=== PATIENT | male | born 1980 | race African-American/Black ===

== ENCOUNTER 2020-08-31 11:10 | Emergency (ER) | payer SELFPAY ==
[~2020-08-31] VITALS: Ht 185.4 cm; Wt 149.7 kg
[2020-08-31] MEDS ORDERED: SODIUM CHLORIDE 0.9% 1,000 ML IV ONE ×2 (11:30)
[2020-08-31 11:49] LABS: Basophils # (auto) 0 10 ^3/uL (0-0.2); Basophils % (auto) 0.6 % (0.0-2.0); Eosinophils # (auto) 0 10 ^3/uL (0-0.8); Eosinophils % (auto) 0.6 % (0.0-7.0); Hematocrit 44.7 % (41.0-53.0); Hemoglobin 15.9 g/dL (13.5-17.5); Mean Corpuscular Hemoglobin 31.1 pg (28.0-32.0); Mean Corpuscular Hgb Conc. 35.5 g/dL (32.0-36.0); Mean Corpuscular Volume 87.7 fL (80.0-100.0); Monocytes # (auto) 0.5 10 ^3/uL (0-1.3); Monocytes % (auto) 8.9 % (0.0-12.0); Neutrophils # (auto) 3.5 10 ^3/uL (1.6-8.6); Neutrophils % (auto) 57.9 % (37.0-80.0); Nucleated Red Blood Cells % 0.1 %; Red Cell Distribution Width 13.1 % (11.8-14.3); White Blood Cell 6.1 10^3/uL (4.4-10.8)
[2020-08-31 12:11] LABS: Albumin 2.7 g/dL (3.4-5.0); Anion Gap 6 (5-15); Blood Urea Nitrogen 11 mg/dL (7-18); Calcium 8.7 mg/dL (8.5-10.1); Carbon Dioxide 25 mmol/L (21-32); Chloride 106 mmol/L (98-107); Glucose 197 mg/dL (74-106); Lipase 266 U/L (73-393); Potassium 4.1 mmol/L (3.5-5.1); Sodium 137 mmol/L (136-145)
[2020-08-31 12:16] LABS: Alanine Aminotransferase 22 U/L (16-61); Alkaline Phosphatase 81 U/L (45-117); Aspartate Aminotransferase 20 U/L (15-37); BUN/Creatinine Ratio 8.5; Bilirubin, Total 0.6 mg/dL (0.2-1.0); GFR African American 79 mL/min; GFR Non-African American 65 mL/min; Total Protein 7.2 g/dL (6.4-8.2)
[2020-08-31] MEDS ORDERED: LABETALOL HCL 5 MG/ML 4ML SYRINGE IV ONE (12:30)
[2020-08-31] MEDS ORDERED: ONDANSETRON HCL 4 MG/2 ML VIAL IV ONE (12:30)
[2020-08-31] MEDS ORDERED: MORPHINE SULFATE 4 MG/ML SYR/VIAL IV ONE (12:30)
[2020-08-31 14:00] VITALS: BP 182/93
[2020-08-31] MEDS ORDERED: cloNIDine HCL 0.1 MG TAB PO ONE (14:00)
== END 2020-08-31 15:12 | disposition home or self-care (01) ==
LOC: EDBD 11:10 → ER 11:10
DX: R10.84 Generalized abdominal pain (principal); R11.2 Nausea with vomiting, unspecified; I10 Essential (primary) hypertension; E11.9 Type 2 diabetes mellitus without complications
CPT/HCPCS: 36415; 71045; 74176; 80053; 83690; 84484; 85025; 96361; 96374; 96375; 99285; J2270; J2405; J3490

== ENCOUNTER 2023-12-11 09:17 | Day surgery (SDC) | payer MEDICAID ==
[~2023-12-11] VITALS: Ht 188 cm; Wt 136.5 kg
[~2023-12-11 09:17] MED LIST: ASPI-543 PO; CALC667C PO; CLON0.1T PO; HYDR-2792 PO; NIFE1TAB31 PO
[2023-12-11] MEDS ORDERED: LIDOCAINE 1% HCL (LOCAL ANESTH.) INJ 20ML MDV ONE (10:21)
[2023-12-11] MEDS ORDERED: ceFAZolin 2 GM/D5W100ml 100 ML IV ONE (10:25)
[2023-12-11] MEDS: HEPARIN SODIUM (PORCINE) 5000 UNITS/ML 1ML VIAL ONE ×2 (10:45→11:31)
[2023-12-11] MEDS ORDERED: KETAMINE 50mg/ML 1ml syringe ONE (11:19)
[2023-12-11] MEDS ORDERED: fentaNYL CITRATE 100 MCG/2 ML VL ONE (11:21)
[2023-12-11] MEDS ORDERED: DexAMETHasone SOD PHOS 10MG/1ML VIAL INJ ONE (12:06)
[2023-12-11] MEDS ORDERED: ONDANSETRON HCL 4 MG/2 ML VIAL ONE (12:06)
[2023-12-11 12:15] VITALS: PULSE 65; RESP 12; TEMP 97.4; O2SAT 100
[2023-12-11] MEDS ORDERED: fentaNYL CITRATE 100 MCG/2 ML VL IM PRN (13:30)
[2023-12-11] MEDS: fentaNYL CITRATE 100 MCG/2 ML VL ONE (13:38)
[2023-12-11 14:00] VITALS: BP 172/104; PULSE 67; RESP 11; O2SAT 98
== END 2023-12-11 14:20 | disposition home or self-care (01) ==
LOC: SUR 09:17
PROVIDERS: ATTEND Surgery Vascular Surgery
DX: I12.0 Hypertensive chronic kidney disease with stage 5 chronic kidney disease or end stage renal disease (principal); E11.22 Type 2 diabetes mellitus with diabetic chronic kidney disease; N18.6 End stage renal disease; E78.5 Hyperlipidemia, unspecified; E66.01 Morbid (severe) obesity due to excess calories; F17.290 Nicotine dependence, other tobacco product, uncomplicated; Z79.899 Other long term (current) drug therapy; Z79.84 Long term (current) use of oral hypoglycemic drugs; Z98.890 Other specified postprocedural states; Z99.2 Dependence on renal dialysis
CPT/HCPCS: 36821; 86850; 86900; 86901; J1100; J1644; J2003; J2405; J3010